=== PATIENT | female | born 1990 | race American Indian/Alaskan Native ===

== ENCOUNTER 2017-04-03 21:27 | Emergency (ER) | payer OTHER, MEDICAID ==
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
[2017-04-04 06:17] VITALS: BP 120/70
== END 2017-04-04 06:16 | disposition home or self-care (01) ==
LOC: ED 21:27
DX: S16.1XXA Strain of muscle, fascia and tendon at neck level, initial encounter (principal); V49.59XA Passenger injured in collision with other motor vehicles in traffic accident, initial encounter; Y93.89 Activity, other specified; Y99.8 Other external cause status; Y92.488 Other paved roadways as the place of occurrence of the external cause
CPT/HCPCS: 99282

== ENCOUNTER 2019-04-09 12:44 | Outpatient (CLI) | payer MEDICAID | END 2019-04-09 16:45 | disposition home or self-care (01) | LOC: LAB 12:44 → TRG 16:22 → LAB 16:45 | PROVIDERS: ATTEND Obstetrics & Gynecology | DX: O26.893 Other specified pregnancy related conditions, third trimester (principal); Z67.41 Type O blood, Rh negative; Z3A.28 28 weeks gestation of pregnancy | CPT/HCPCS: 86850; 86900; 86901; 96372; J2790 ==

== ENCOUNTER 2019-07-09 20:20 | Inpatient (IN) | payer MEDICAID ==
[2019-07-09] MEDS ORDERED: ePHEDrine SULFATE 50 MG/1 ML INJ IV PRN (21:10)
[2019-07-09] MEDS ORDERED: TERBUTALINE 1 MG/1 ML INJ IVP PRN (21:10)
[2019-07-09] MEDS ORDERED: LIDOCAINE (2%) 20 MG/1 ML VIAL 20 ML MDV INFILTRATI ONE (21:10)
[2019-07-09] MEDS ORDERED: TERBUTALINE 1 MG/1 ML INJ SUB-Q PRN (21:10)
[2019-07-09] MEDS ORDERED: MINERAL OIL 30 ML ORAL LIQD PO PRN (21:10)
[2019-07-09] MEDS ORDERED: AMPICILLIN/NS 2 GM/100 ML 2 GM/100 ML BAG IV ONE (21:10)
[2019-07-09 21:46] LABS: Hematocrit 30.8 % (30.3-42.9); Hemoglobin 10.3 gm/dl (10.1-14.3); Mean Corpuscular HGB Conc 33 % (30-34); Mean Corpuscular Volume 80 fl (79-97); Platelet Count 148 K/mm3 (140-440); Red Blood Count 3.84 M/mm3 (3.65-5.03); Red Cell Distribution Width 14.8 % (13.2-15.2)
[2019-07-09] MEDS ORDERED: OXYTOCIN 20 UNIT/1000ML DRIP 20 UNITS/1,000 ML BAG IV SCH (22:00)
[2019-07-09] MEDS: LACTATED RINGERS 1,000 ML IV SCH (22:26)
[2019-07-09] MEDS ORDERED: OXYTOCIN DRIP 30 UNITS/500 ML BAG IV SCH (23:00)
[2019-07-10] MEDS ORDERED: ZOLPIDEM 5 MG TAB PO PRN (01:38)
[2019-07-10] MEDS ORDERED: AMPICILLIN/NS 2 GM/100 ML 2 GM/100 ML BAG IV ONE (05:24)
[2019-07-10] MEDS: LACTATED RINGERS 1,000 ML IV SCH ×2 (05:42→16:22)
[2019-07-10] MEDS: AMPICILLIN/NS 1 GM/50 ML 1 GM/50 ML BAG IV SCH ×2 (09:30→16:15)
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
[2019-07-10] MEDS ORDERED: METHYLERGONOVINE 0.2 MG TABLET PO SCH (11:00)
--- NOTE | 2019-07-10 12:29 | Progress Note ---
Assessment and Plan 29 yo at 41.4 weeks EGA Discussed r/b/a of AROM. Pt elects for AROM. AROM clear fluid at 1220, FHT reassuring throughout Increase Pitocin titration Subjective - Subjective Date of service: 07/10/19 Principal diagnosis: IOL Interval history: Pt has been feeling contractions, irregular. Patient reports: contractions, no new complaints, no loss of fluid, no vaginal bleeding Objective - Vital Signs Vital Signs: Vital Signs - 12hr 07/10/19 07/10/19 07/10/19 00:28 02:30 03:29 Temperature Pulse Rate 71 72 58 L Respiratory Rate Blood Pressure 99/58 118/79 107/66 07/10/19 07/10/19 07/10/19 04:00 04:31 05:28 Temperature 97.9 F Pulse Rate 78 61 Respiratory 16 Rate Blood Pressure 110/69 107/61 07/10/19 07/10/19 07/10/19 06:29 07:29 08:16 Temperature 97.6 F Pulse Rate 66 70 Respiratory Rate Blood Pressure 92/51 142/85 07/10/19 07/10/19 07/10/19 08:29 09:10 09:28 Temperature Pulse Rate 77 62 65 Respiratory Rate Blood Pressure 118/63 112/75 112/78 - Exam Lungs: Normal air movement Abdomen: Present: soft Uterus: Present: normal, firm FHR: category 1 Uterine Contraction Monitor Mode: External Cervical Dilatation: 4 Cervical Effacement Percentage: 50 station: -2 Uterine Contraction Pattern: Irregular - Labs Labs: Abnormal Labs 07/09/19 21:00 MCH 27 L Laboratory Results - last 24 hr 07/09/19 07/09/19 21:00 21:00 WBC 7.9 RBC 3.84 Hgb 10.3 Hct 30.8 MCV 80 MCH 27 L MCHC 33 RDW 14.8 Plt Count 148 Blood Type O NEGATIVE Antibody Screen Negative
[2019-07-10] MEDS ORDERED: fentaNYL 100 MCG/2 ML INJ ONE (14:55)
[2019-07-10] MEDS ORDERED: fentaNYL 100 MCG/2 ML INJ IV ONE (15:00)
[2019-07-10] MEDS ORDERED: ePHEDrine SULFATE 50 MG/1 ML INJ IV PRN (15:49)
[2019-07-10] MEDS ORDERED: NALOXONE 2 MG/2 ML INJ IV PRN (15:49)
[2019-07-10] MEDS ORDERED: fentaNYL-BUPIV 2 MCG/ML-0.125% 200 MCG/100 ML BAG EPIDURAL SCH (16:00)
--- NOTE | 2019-07-10 16:27 | Anesthesia Consultation ---
Anesthesia Consult and Med Hx Date of service: 07/10/19 - Airway Anesthetic Teeth Evaluation: Poor, Chipped ROM Head & Neck: Adequate Mental/Hyoid Distance: Adequate Mallampati Class: Class II Intubation Access Assessment: Probably Good - Pulmonary Exam CTA: Yes - Cardiac Exam Cardiac Exam: RRR - Pre-Operative Health Status ASA Pre-Surgery Classification: ASA2 Proposed Anesthetic Plan: Spinal - Pulmonary Hx Smoking: Yes (1PK/DAY FOR 15YRS) Hx Asthma: No Hx Respiratory Symptoms: No SOB: No COPD: No Home Oxygen Therapy: No Hx Pneumonia: No Hx Sleep Apnea: No - Cardiovascular System Hx Hypertension: No Hx Coronary Artery Disease: No Hx Heart Attack/AMI: No Hx Angina: No Hx Percutaneous Transluminal Coronary Angioplasty (PTCA): No Hx Cardia Arrhythmia: No Hx Pacemaker: No Hx Internal Defibrillator: No Hx Valvular Heart Disease: No Hx Heart Murmur: No Hx Peripheral Vascular Disease: No - Central Nervous System Hx Neuromuscular Disorder: No Hx Seizures: No CVA: No Hx Back Pain: No Hx Psychiatric Problems: No - Gastrointestinal Hx Ulcer: No Hx Gastroesophageal Reflux Disease: Yes - Endocrine Hx Renal Disease: No Hx End Stage Renal Disease: No Hx Cirrhosis: No Hx Liver Disease: No Hx Insulin Dependent Diabetes: No Hx Non-Insulin Dependent Diabetes: No Hx Thyroid Disease: No Hx Hypothyroidism: No Hx Hyperthyroidism: No - Hematic Hx Anemia: No Hx Sickle Cell Disease: No - Other Systems Hx Alcohol Use: Yes Hx Substance Use: No Hx Cancer: No Hx Obesity: No
[2019-07-10] MEDS ORDERED: miSOPROStol 200 MCG TAB ONE (17:53)
[2019-07-10] MEDS ORDERED: METHYLERGONOVINE MALEATE 0.2 MG/ML VIAL IM ONE ×2 (17:53→19:12)
[2019-07-10] MEDS ORDERED: MAGNESIUM HYDROXIDE (MOM) ORAL LIQD UDC PO PRN (18:13)
[2019-07-10] MEDS ORDERED: WITCH HAZEL/ GLYCERIN PAD TP PRN (18:13)
[2019-07-10] MEDS ORDERED: ACETAMINOPHEN 325 MG TAB PO PRN (18:13)
[2019-07-10] MEDS ORDERED: LANOLIN/ZINC/DIMETHICONE (LANSINOH) 7 GM TP PRN (18:13)
[2019-07-10] MEDS ORDERED: ONDANSETRON 4 MG/2 ML INJ IV PRN (18:13)
[2019-07-10] MEDS ORDERED: diphenhydrAMINE 25 MG CAP PO PRN (18:13)
[2019-07-10] MEDS ORDERED: PROMETHAZINE 25 MG RECT SUPP PR PRN (18:13)
[2019-07-10] MEDS ORDERED: PROMETHAZINE 25 MG TAB PO PRN (18:13)
--- NOTE | 2019-07-10 18:23 | Procedure Note ---
OB Delivery Note - Delivery Date of Delivery: 07/10/19 Surgeon: JOANNA VILLALBA ([facility]) Estimated blood loss: 500cc - Vaginal Delivery presentation: vertex Delivery position: OA Intrapartum events: PROM->1hr before delivery, mult.variable deceleratio, uterine atony Delivery induction: oxytocin Delivery augmentation: rupture of membranes Delivery monitor: external FHT, external uterine Route of delivery: Delivery placenta: expressed Delivery cord: 3 umbilical vessels, other (body cord x2) Episiotomy: none Delivery laceration: other (right labial split) Delivery repair: vicryl (4-0) Anesthesia: epidural Delivery comments: Excellent maternal effort progressed to of viable . Shoulders followed head with moderate traction. Body cord x2 reduced at perineum. Delayed cord clamping. Placenta followed with gentle traction. Brisk bleeding and uterine atony resolved with fundal massage, IV Pitocin, Methergine 0.2 mg IM, and Cytotec 400mcg PO/400mcg WA. Fundus firm, below U. Right labial split repaired with 2 interrupted stitches to good hemostasis. Mother and infant bonding well. - Infant A Infant Gender: Female (9lb 0.75oz)
[2019-07-10] MEDS ORDERED: miSOPROStol 200 MCG TAB PR ONE (19:11)
[2019-07-10] MEDS ORDERED: BENZOCAINE/MENTHOL 20/0.5% TOP SPRAY 56 GM TP PRN (20:33)
[2019-07-10] MEDS: IBUPROFEN 600 MG TAB PO SCH (20:39)
[2019-07-10] MEDS: FERROUS SULFATE 325 MG TAB PO SCH (21:29)
[2019-07-10] MEDS: DOCUSATE SODIUM 100 MG CAP PO SCH (22:15)
[2019-07-10] MEDS: oxyCODONE /ACETAMINOPHEN 5-325MG TAB PO PRN (22:16)
[2019-07-11] MEDS: IBUPROFEN 600 MG TAB PO SCH ×3 (02:01→20:51)
[2019-07-11] MEDS: oxyCODONE /ACETAMINOPHEN 5-325MG TAB PO PRN ×2 (04:05→20:51)
[2019-07-11] MEDS ORDERED: TETANUS,DIPH,PERTUSS(ACELL) VACCINE 0.5 ML SYRINGE IM ONE (06:00)
[2019-07-11 06:26] LABS: Hematocrit 31.6 % (30.3-42.9); Hemoglobin 10.2 gm/dl (10.1-14.3)
--- NOTE | 2019-07-11 08:29 | Progress Note ---
Assessment and Plan PPD1 s/p and right labial split VSS Repeat H&H Rhogam work-up Anticipate discharge to home tomorrow Subjective - Subjective Date of service: 07/11/19 Principal diagnosis: Interval history: Pt is PPD1 s/p and right labial split. Patient reports: appetite normal, voiding normally, pain well controlled, ambulating normally [place]: doing well, nursing well, bottle feeding (primarily bottle) Objective - Vital Signs Latest vital signs: Vital Signs Temp Pulse Resp BP Pulse Ox 07/11/19 01:22 98.6 F 72 20 122/65 96 07/10/19 20:09 99.9 F H 66 20 134/69 98 07/10/19 18:47 129 H 238/149 07/10/19 18:02 97.6 F 07/10/19 17:46 71 138/79 07/10/19 17:24 71 100 07/10/19 17:19 56 L 100 07/10/19 17:18 57 L 127/59 07/10/19 17:09 64 99 07/10/19 17:04 59 L 98 07/10/19 16:59 60 99 07/10/19 16:54 70 99 07/10/19 16:53 60 94 07/10/19 16:49 60 99 07/10/19 16:48 72 150/79 07/10/19 16:47 77 83 L 07/10/19 16:44 73 99 07/10/19 16:40 81 92 07/10/19 16:39 78 96 07/10/19 16:34 72 98 07/10/19 16:28 65 99 07/10/19 16:24 97.6 F 72 93 07/10/19 16:23 63 99 07/10/19 16:18 69 97 07/10/19 16:15 64 123/82 07/10/19 16:13 75 123/83 98 07/10/19 16:11 68 130/82 07/10/19 16:09 61 133/90 07/10/19 16:08 65 98 07/10/19 16:07 72 127/83 07/10/19 16:05 67 134/81 07/10/19 16:03 71 136/81 98 07/10/19 16:01 66 139/80 07/10/19 15:59 69 136/81 07/10/19 15:58 69 99 07/10/19 15:57 62 127/83 07/10/19 15:55 60 123/86 07/10/19 15:53 77 122/79 99 07/10/19 15:52 73 90 07/10/19 15:51 68 142/82 07/10/19 15:49 73 119/80 07/10/19 15:48 55 L 86 07/10/19 15:47 68 128/77 90 07/10/19 15:45 67 131/78 07/10/19 15:43 73 98 07/10/19 15:41 80 137/71 07/10/19 15:39 78 148/73 94 07/10/19 15:38 84 98 07/10/19 15:37 84 148/81 07/10/19 15:35 82 132/87 07/10/19 15:34 53 L 86 07/10/19 15:33 82 125/87 07/10/19 15:31 79 136/80 99 07/10/19 15:26 74 98 07/10/19 15:25 72 130/90 07/10/19 14:08 70 131/60 07/10/19 13:36 68 112/67 07/10/19 13:07 62 98/53 07/10/19 12:32 97.4 F L 20 07/10/19 12:29 81 102/64 07/10/19 09:28 65 112/78 07/10/19 09:10 62 112/75 07/10/19 08:29 77 118/63 Intake and Output 07/10/19 07/11/19 07/11/19 23:59 07:59 15:59 Intake Total 360 360 Output Total 600 Balance -240 360 Intake: Oral 360 360 Output: Urine 600 Uretheral (Maurer) 300 Void 300 Other: Total, Intake Amount 360 360 Total, Output Amount 300 # Voids Void 1 1 Estimated Blood Loss 500 - Exam Lungs: Present: Normal air movement Abdomen: Present: normal appearance, soft Vulva: right: laceration/episiotomy (tissue well-approximated, healing well) Uterus: Present: normal, firm, fundal height below umbilicus Extremities: Present: normal
--- NOTE | 2019-07-11 08:32 | Discharge Summary ---
Providers - Providers Date of Admission: 07/09/19 20:20 Date of discharge: 07/12/19 Attending physician: MALCOM VERA MD Primary care physician: MALCOM VERA MD Hospitalization Reason for admission: induction of labor Delivery: Episiotomy: none Laceration: other (right labial split) Other procedures: none complications: uterine atony Discharge diagnosis: IUP at term delivered [place] baby: female Hospital course: Pt presented for IOL for post-dates, progressed to of vigorous female. Rhogam . Uncomplicated hospital course. Condition at discharge: Good Disposition: DC-01 TO HOME OR SELFCARE Plan - Discharge Medications Prescriptions: Ferrous Sulfate [Feosol 325 MG tab] 325 mg PO BID #60 tablet Ibuprofen [Motrin] 600 mg PO Q6H PRN #90 tablet PRN Reason: Pain - Provider Discharge Summary Activity: routine, no sex for 6 weeks, no heavy lifting 4 weeks, no strenuous exercise Diet: routine Instructions: routine Additional instructions: [] Smoking cessation referral if applicable(refer to patient education folder for contact #) [] Refer to [facility]'s [facility] Booklet Call your doctor immediately for: * Fever > 100.5 * Heavy vaginal bleeding ( >1 pad per hour) * Severe persistent headache * Shortness of breath * Reddened, hot, painful area to leg or breast * Drainage or odor from incision. * Keep incision clean and dry at all times and follow doctor's instructions regarding bathing/showering - Follow up plan Follow up: JOANNA VILLALBA CNM [Advanced Practice Nurse] - 08/07/19 (Please call [facility] to schedule an appointment)
[2019-07-11] MEDS: FERROUS SULFATE 325 MG TAB PO SCH ×2 (09:49→22:06)
[2019-07-11] MEDS: DOCUSATE SODIUM 100 MG CAP PO SCH ×2 (09:49→22:06)
[2019-07-11 10:15] LABS: Hematocrit 27.6 % (30.3-42.9)
[2019-07-11] MEDS ORDERED: MEASLES, MUMPS & RUBELLA 12,500 UNIT/0.5 ML VACCINE SUB-Q ONE (18:13)
[2019-07-12] MEDS: IBUPROFEN 600 MG TAB PO SCH ×2 (05:53)
[2019-07-12] MEDS: DOCUSATE SODIUM 100 MG CAP PO SCH (09:34)
[2019-07-12] MEDS: FERROUS SULFATE 325 MG TAB PO SCH (09:34)
[2019-07-12] MEDS: oxyCODONE /ACETAMINOPHEN 5-325MG TAB PO PRN (09:34)
[2019-07-12 10:08] VITALS: BP 119/73
== END 2019-07-12 15:42 | disposition home or self-care (01) | DRG 774 ==
LOC: LD 20:20 → OB 07-10 19:50
PROVIDERS: ADMIT Obstetrics & Gynecology; ATTEND Obstetrics & Gynecology
PROC: 10E0XZZ Delivery of Products of Conception, External Approach (ICD-10-PCS; principal; 2019-07-10)
PROC: 0UQMXZZ Repair Vulva, External Approach (ICD-10-PCS; 2019-07-10)
PROC: 3E033VJ Introduction of Other Hormone into Peripheral Vein, Percutaneous Approach (ICD-10-PCS; 2019-07-10)
PROC: 3E0R3BZ Introduction of Anesthetic Agent into Spinal Canal, Percutaneous Approach (ICD-10-PCS; 2019-07-10)
PROC: 00HU33Z Insertion of Infusion Device into Spinal Canal, Percutaneous Approach (ICD-10-PCS; 2019-07-10)
PROC: 10907ZC Drainage of Amniotic Fluid, Therapeutic from Products of Conception, Via Natural or Artificial Opening (ICD-10-PCS; 2019-07-10)
PROC: 3E0234Z Introduction of Serum, Toxoid and Vaccine into Muscle, Percutaneous Approach (ICD-10-PCS; 2019-07-11)
PROC: 3E0334Z Introduction of Serum, Toxoid and Vaccine into Peripheral Vein, Percutaneous Approach (ICD-10-PCS; 2019-07-11)
DX: O76 Abnormality in fetal heart rate and rhythm complicating labor and delivery (principal); O98.52 Other viral diseases complicating childbirth; O42.02 Full-term premature rupture of membranes, onset of labor within 24 hours of rupture; O99.334 Smoking (tobacco) complicating childbirth; F17.200 Nicotine dependence, unspecified, uncomplicated; O99.62 Diseases of the digestive system complicating childbirth; K21.9 Gastro-esophageal reflux disease without esophagitis; O48.0 Post-term pregnancy; O99.824 Streptococcus B carrier state complicating childbirth; B00.9 Herpesviral infection, unspecified; D56.0 Alpha thalassemia; O75.3 Other infection during labor; O26.893 Other specified pregnancy related conditions, third trimester; O70.0 First degree perineal laceration during delivery; O62.2 Other uterine inertia; Z3A.41 41 weeks gestation of pregnancy; Z37.0 Single live birth; Z82.49 Family history of ischemic heart disease and other diseases of the circulatory system; Z82.3 Family history of stroke; Z79.899 Other long term (current) drug therapy; Z67.91 Unspecified blood type, Rh negative; Z23 Encounter for immunization
CPT/HCPCS: 36415; 85014; 85018; 85027; 85461; 86592; 86850; 86900; 86901; G0378; A6250; J0290; J2210; J2590; J2790; J3010; J7120